=== PATIENT | female | born 2000 | race Two or more races ===

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

== ENCOUNTER 2020-01-04 08:19 | Outpatient (CLI) | payer OTHER | END 2020-01-04 08:24 | disposition home or self-care (01) | LOC: LAB 08:19 | DX: N39.0 Urinary tract infection, site not specified (principal); D51.8 Other vitamin B12 deficiency anemias; R94.5 Abnormal results of liver function studies; E78.49 Other hyperlipidemia; E03.8 Other specified hypothyroidism; E11.9 Type 2 diabetes mellitus without complications; Z13.29 Encounter for screening for other suspected endocrine disorder; R87.1 Abnormal level of hormones in specimens from female genital organs ==

== ENCOUNTER 2020-01-13 08:45 | Outpatient (CLI) | payer OTHER | END 2020-01-13 08:55 | disposition home or self-care (01) | LOC: SONOGRAMA 08:45 | PROVIDERS: ATTEND Specialist | DX: R10.2 Pelvic and perineal pain (principal); N92.5 Other specified irregular menstruation ==

== ENCOUNTER → 2020-01-28 11:38 | Outpatient (CLI) | payer OTHER | END | disposition home or self-care (01) | LOC: LAB 11:38 | PROVIDERS: ATTEND Pediatrics Pediatric Endocrinology | DX: E16.1 Other hypoglycemia (principal); N91.2 Amenorrhea, unspecified; N80.8 Other endometriosis ==

== ENCOUNTER 2020-02-28 19:31 | Emergency (ER) | payer OTHER ==
[~2020-02-28] VITALS: Ht 165.1 cm; Wt 59.0 kg
[2020-02-28] MEDS ORDERED: [UNRECOGNIZED DRUG - OTHER] (19:44)
[2020-02-28] MEDS ORDERED: FOLIC ACID0.8 M1 (19:45)
[2020-02-28] MEDS ORDERED: MEDROXYPROGESTE10 MG PO (22:22)
== END 2020-02-28 22:28 | disposition home or self-care (01) ==
LOC: ER 19:31 → EMR PED 19:57 → ER 19:57 → EMR PED 22:28
DX: N93.8 Other specified abnormal uterine and vaginal bleeding (principal); N92.1 Excessive and frequent menstruation with irregular cycle; R53.81 Other malaise

== ENCOUNTER 2020-09-27 14:30 | Emergency (ER) | payer OTHER ==
[~2020-09-27] VITALS: Ht 167.6 cm; Wt 59.0 kg
[~2020-09-27 14:30] MED LIST changes: +FOLIC ACID0.8 M1; +MEDROXYPROGESTE10 MG PO; +[UNRECOGNIZED DRUG - OTHER]
== END 2020-09-27 18:29 | disposition home or self-care (01) ==
LOC: EMR PED 14:30
DX: K60.2 Anal fissure, unspecified (principal); R04.0 Epistaxis

== ENCOUNTER 2022-10-24 07:52 | Outpatient (CLI) | payer OTHER | END 2022-10-24 08:08 | disposition home or self-care (01) | LOC: RAD 07:52 | DX: M99.01 Segmental and somatic dysfunction of cervical region (principal); M99.02 Segmental and somatic dysfunction of thoracic region; M99.03 Segmental and somatic dysfunction of lumbar region; M99.04 Segmental and somatic dysfunction of sacral region; M99.05 Segmental and somatic dysfunction of pelvic region ==

== ENCOUNTER → 2023-05-04 07:33 | Outpatient (CLI) | payer OTHER ==
[2023-05-04 08:21] LABS: HEMATOCRIT 38.5 % (36.0-45.00); HEMOGLOBIN 13.2 g/dL (12.0-15.00); MEAN CELL VOLUME 92.6 fL (80.00-100.00); MEAN CORPUSCULAR HEMOGLOBIN 31.6 pg (27.00-32.0); MEAN CORPUSCULAR HGB CONC 34.1 g/dl (32.0-36.0); PLATELET COUNT 263 K/uL (150-450); RED BLOOD COUNT 4.16 M/uL (4.00-6.00); RED CELL DISTRIBUTION WIDTH 13.2 % (11.5-14.5)
[2023-05-04 08:22] LABS: PH,URINE 6.5 (5.0-8.0); URINE APPEARANCE Turbid; URINE BILIRRUBIN Small (NEGATIVE); URINE BLOOD Large; URINE COLOR Red; URINE GLUCOSE Negative (NEGATIVE); URINE LEUKOCYTE Small; URINE NITRATE Negative; URINE PROTEIN 30 (NEGATIVE); URINE UROBILINOGEN 0.2 E.U./dl
[2023-05-04 08:26] LABS: URINE BACTERIA 432.1 uL (0.0-1933); URINE EPITHELIAL CELLS 35.2 uL (0.0-38.8); URINE WBC 65.8 uL (0.0-23.2)
[2023-05-04 08:44] LABS: URINE RBC > 10558.9 uL (0.0-20.8)
[2023-05-04 09:01] LABS: BILIRUBIN TOTAL 0.39 mg/dL (0.3-1.2); CALCIUM 8.8 mg/dL (8.5-10.1); CHOL HDL RATIO 2.6 (0-5.0); CREATININE SERUM 0.7 mg/dL (0.55-1.02); GFR 103.69; GLOBULINA 3.7 G/DL (2.4-3.5); POTASSIUM 3.59 mEq/L (3.5-5.1); TOTAL PROTEIN 7.7 gm/dL (6.4-8.2); TSH 1.16 uIU/mL (0.358-3.74)
[2023-05-06 05:43] LABS: CA 125 6.3 U/mL (0.0-38.1); hav igm Negative (Negative); hcv Non Reactive (Non Reactive); hep b c Negative (Negative)
== END | disposition home or self-care (01) ==
LOC: LAB 07:33
PROVIDERS: ATTEND Obstetrics & Gynecology
DX: Z12.11 Encounter for screening for malignant neoplasm of colon (principal); D64.9 Anemia, unspecified; E03.8 Other specified hypothyroidism; N95.1 Menopausal and female climacteric states; C51.9 Malignant neoplasm of vulva, unspecified; N30.00 Acute cystitis without hematuria; E83.51 Hypocalcemia; A64 Unspecified sexually transmitted disease; N39.0 Urinary tract infection, site not specified; E79.89 Other specified disorders of purine and pyrimidine metabolism; E55.9 Vitamin D deficiency, unspecified; A60.9 Anogenital herpesviral infection, unspecified

== ENCOUNTER 2023-11-16 09:10 | Emergency (ER) | payer OTHER ==
[~2023-11-16] VITALS: Ht 167.6 cm; Wt 59.9 kg
[2023-11-16] MEDS ORDERED: LAMOTRIGINE200 MG (09:21)
[2023-11-16] MEDS ORDERED: KETOROLAC TROMETHAMINE 30 MG VIAL IM ONE (10:00)
[2023-11-16] MEDS ORDERED: 0.9 % SODIUM CHLORIDE 500 ML IV ONE (10:00)
[2023-11-16] MEDS ORDERED: ONDANSETRON HCL 2 MG/ML VIAL IV ONE (10:00)
[2023-11-16] MEDS ORDERED: FAMOtidine 10 MG/ML (4ML VIAL) IV ONE (10:00)
[2023-11-16] MEDS ORDERED: KETOROLAC TROMETHAMINE 30 MG VIAL ONE (10:01)
[2023-11-16] MEDS ORDERED: ONDANSETRON HCL 2 MG/ML VIAL ONE (10:01)
[2023-11-16] MEDS ORDERED: FAMOTIDINE/PF 20 MG/2 ML VIAL ONE (10:02)
[2023-11-16 11:22] LABS: HEMATOCRIT 39.6 % (36.0-45.00); HEMOGLOBIN 13.6 g/dL (12.0-15.00); MEAN CORPUSCULAR HEMOGLOBIN 31.6 pg (27.00-32.0); MEAN CORPUSCULAR HGB CONC 34.3 g/dl (32.0-36.0); PLATELET COUNT 285 K/uL (150-450); RED CELL DISTRIBUTION WIDTH 13.3 % (11.5-14.5)
[2023-11-16 11:57] LABS: ALBUMIN 4.5 gm/dL (3.4-5.0); ALKALINE PHOSPHATASE 98 U/L (50-136); ALT/SGPT 22 U/L (12-78); AMYLASE 81 U/L (25-115); ANION GAP 8 (10.0-20.0); AST/SGOT 12 U/L (15-37); BILIRUBIN TOTAL 0.69 mg/dL (0.3-1.2); BLOOD UREA NITROGEN 10 mg/dL (7-18); BUN CREA RATIO 10 (7.0-25.0); CALCIUM 9.8 mg/dL (8.5-10.1); CARBON DIOXIDE 28 mEq/L (21-32); CHLORIDE 109 mmol/L (98-107); CREATININE SERUM 0.98 mg/dL (0.55-1.02); GFR 70.33; GLOBULINA 3.7 G/DL (2.4-3.5); GLUCOSE FASTING 89 mg/dL (65-100); LIPASE 42 U/L (13-75); OSMOLALITY SERUM 280 MOSM/KG (275-295); PHOSPHOKINASE CREATININE 77 U/L (26-192); POTASSIUM 3.92 mEq/L (3.5-5.1); SODIUM 141 mmol/L (136-145); TOTAL PROTEIN 8.2 gm/dL (6.4-8.2)
[2023-11-16 12:01] LABS: HCG QUANTITATIVE < 1 mUI/mL (1-3)
[2023-11-16] MEDS ORDERED: PEPCID AC20 MG PO (14:18)
[2023-11-16] MEDS ORDERED: KETO10TA2 PO (14:18)
[2023-11-16] MEDS ORDERED: ZOFRAN8 MG PO (14:18)
== END 2023-11-16 14:30 | disposition home or self-care (01) ==
LOC: ER 09:11
PROVIDERS: General Practice
DX: R00.0 Tachycardia, unspecified (principal); R11.2 Nausea with vomiting, unspecified; R07.9 Chest pain, unspecified; G40.802 Other epilepsy, not intractable, without status epilepticus; M94.0 Chondrocostal junction syndrome [Tietze]

== ENCOUNTER 2024-01-27 06:55 | Outpatient (CLI) | payer OTHER ==
[~2024-01-27 06:55] MED LIST changes: +KETO10TA2 PO; +LAMOTRIGINE200 MG; +PEPCID AC20 MG PO; +ZOFRAN8 MG PO
[2024-01-27 07:37] LABS: HEMATOCRIT 40.6 % (36.0-45.00); HEMOGLOBIN 13.7 g/dL (12.0-15.00); MEAN CELL VOLUME 95.4 fL (80.00-100.00); MEAN CORPUSCULAR HEMOGLOBIN 32.2 pg (27.00-32.0); MEAN CORPUSCULAR HGB CONC 33.7 g/dl (32.0-36.0); PLATELET COUNT 271 K/uL (150-450); RED BLOOD COUNT 4.25 M/uL (4.00-6.00); RED CELL DISTRIBUTION WIDTH 13.1 % (11.5-14.5)
[2024-01-27 07:51] LABS: PH,URINE 6.5 (5.0-8.0); URINE APPEARANCE Clear; URINE BILIRRUBIN Negative (NEGATIVE); URINE BLOOD Negative; URINE COLOR Yellow; URINE GLUCOSE Negative (NEGATIVE); URINE KETONE Negative (NEGATIVE); URINE LEUKOCYTE Negative; URINE NITRATE Negative; URINE PROTEIN Negative (NEGATIVE); URINE UROBILINOGEN 0.2 E.U./dl
[2024-01-27 07:55] LABS: URINE BACTERIA 1233.5 uL (0.0-1933); URINE EPITHELIAL CELLS 53.1 uL (0.0-38.8); URINE RBC 2.5 uL (0.0-20.8); URINE WBC 20.4 uL (0.0-23.2)
[2024-01-27 07:58] LABS: URINE CAST 0.45 uL (0.0-1.40)
[2024-01-27 08:00] LABS: BILIRUBIN TOTAL 0.49 mg/dL (0.3-1.2); CALCIUM 9.1 mg/dL (8.5-10.1); CREATININE SERUM 0.92 mg/dL (0.55-1.02); GFR 75.65; GLOBULINA 3.6 G/DL (2.4-3.5); POTASSIUM 3.68 mEq/L (3.5-5.1); TOTAL PROTEIN 7.6 gm/dL (6.4-8.2)
== END 2024-01-27 06:56 | disposition home or self-care (01) ==
LOC: LAB 06:55
DX: G40.319 Generalized idiopathic epilepsy and epileptic syndromes, intractable, without status epilepticus (principal); E55.9 Vitamin D deficiency, unspecified; N39.0 Urinary tract infection, site not specified

== ENCOUNTER 2024-01-27 08:14 | Outpatient (CLI) | payer OTHER | END 2024-01-27 08:22 | disposition home or self-care (01) | LOC: SONOGRAMA 08:14 | PROVIDERS: ATTEND Internal Medicine Gastroenterology | DX: R10.13 Epigastric pain (principal); R11.0 Nausea; R51.9 Headache, unspecified; G40.909 Epilepsy, unspecified, not intractable, without status epilepticus | CPT/HCPCS: 70553 ==

== ENCOUNTER 2024-06-06 15:11 | Outpatient (CLI) | payer OTHER ==
[2024-06-06 15:30] LABS: HEMATOCRIT 40.9 % (36.0-45.00); HEMOGLOBIN 13.3 g/dL (12.0-15.00); MEAN CELL VOLUME 94.8 fL (80.00-100.00); MEAN CORPUSCULAR HEMOGLOBIN 30.8 pg (27.00-32.0); MEAN CORPUSCULAR HGB CONC 32.5 g/dl (32.0-36.0); PLATELET COUNT 335 K/uL (150-450); RED BLOOD COUNT 4.31 M/uL (4.00-6.00); RED CELL DISTRIBUTION WIDTH 13.4 % (11.5-14.5)
[2024-06-06 16:03] LABS: MYCOPLASMA PNEUMONIAE IGM NON REACTIVE (NO REACTIVE)
== END 2024-06-06 15:15 | disposition home or self-care (01) ==
LOC: LAB 15:11
DX: J11.1 Influenza due to unidentified influenza virus with other respiratory manifestations (principal); A49.3 Mycoplasma infection, unspecified site; D51.9 Vitamin B12 deficiency anemia, unspecified; R94.5 Abnormal results of liver function studies

== ENCOUNTER 2025-02-13 10:55 | Emergency (ER) | payer OTHER ==
[~2025-02-13] VITALS: Ht 167.6 cm; Wt 61.2 kg
[2025-02-13] MEDS ORDERED: DEXAMETHASONE SODIUM PHOSPHATE 4 MG/ML VIAL IM ONE (12:15)
[2025-02-13] MEDS ORDERED: KETOROLAC TROMETHAMINE 60 MG VIAL IM ONE ×2 (12:15→13:16)
[2025-02-13] MEDS ORDERED: DEXAMETHASONE SODIUM PHOSPHATE 4 MG/ML VIAL ONE (13:16)
[2025-02-13] MEDS ORDERED: NAPR500T14 PO (14:41)
== END 2025-02-13 15:03 | disposition home or self-care (01) ==
LOC: ER 10:56
DX: M25.571 Pain in right ankle and joints of right foot (principal)

== ENCOUNTER → 2025-03-25 | Emergency (ER) | payer OTHER ==
[~2025-03-25] VITALS: Ht 167.6 cm; Wt 63.5 kg
[~2025-03-25] MED LIST changes: +CEFTRIAXONE SODIUM 1,000 MG VIAL IM ONE; +CEFTRIAXONE SODIUM 1,000 MG VIAL ONE; +DEXAMETHASONE SODIUM PHOSP/PF 10 MG/ML VIAL IJ ONE; +DEXAMETHASONE SODIUM PHOSPHATE 4 MG/ML VIAL ONE; +GUAIFENESIN 600 MG TABLET.SA PO ONE; +KETOROLAC TROMETHAMINE 30 MG VIAL IM ONE; +KETOROLAC TROMETHAMINE 30 MG VIAL ONE; +MOTRIN IB200 MG PO; +NAPR500T14 PO
[2025-03-25 12:03] VITALS: BP 110/76; O2SAT 97
[2025-03-25 15:39] LABS: BASO % 0.3 % (0.1-1.2); EOS # 0.01 (0.04-0.54); EOS % 0.1 % (0.7-7.0); LYMPH # 1.37 (1.18-3.74); LYMPH % 10.8 % (19.3-53.1); MEAN PLATELET VOLUME 10.10 fl (9.4-12.4); MONO # 0.81 (0.24-0.82); MONO % 6.4 % (4.7-12.5); NEUT # 10.40 (1.56-6.13); NEUT % 82.0 % (34.0-71.1); RED CELL DISTRIBUTION WIDTH 12.9 % (11.6-14.4)
[2025-03-25 16:41] LABS: ALT/SGPT 20.0 U/L (12-78); AST/SGOT 11.0 U/L (15-37); BILIRUBIN TOTAL 0.6 mg/dL (0.3-1.2); BUN CREA RATIO 11.0 (7.0-25.0); CREATININE SERUM 0.95 mg/dL (0.55-1.02); GFR 71.67; GLOBULINA 4.5 G/DL (2.4-3.5); GLUCOSE FASTING 90.0 mg/dL (65-100); OSMOLALITY SERUM 274.0 MOSM/KG (275-295)
[2025-03-25 17:07] LABS: COVID-19 AG NEGATIVE (NEGATIVE)
== END | disposition home or self-care (01) ==
LOC: ER 11:45
PROVIDERS: General Practice
DX: J02.8 Acute pharyngitis due to other specified organisms (principal); G40.802 Other epilepsy, not intractable, without status epilepticus